=== PATIENT | male | born 1955 | race Caucasian/White ===

== ENCOUNTER 2017-04-22 09:41 | Inpatient (IN) | payer MEDICAID, OTHER ==
[~2017-04-22] VITALS: Ht 172.7 cm; Wt 90.9 kg
[2017-04-22] VITALS (15 sets, daily range): BP systolic 109–143; BP diastolic 72–88; PULSE 60–93; RESP 16–25; Ht 172.7 cm; Wt 90.9 kg
[2017-04-22] MEDS ORDERED: CARV6.2579 PO (11:00)
[2017-04-22] MEDS ORDERED: ATOR40TA68 PO (11:00)
[2017-04-22] MEDS ORDERED: ASPI325T4 PO (11:00)
[2017-04-22] MEDS ORDERED: FAMO20TA18 PO (11:00)
[2017-04-22] MEDS ORDERED: FENTAnyl 50 MCG/ML VIAL ONE (12:15)
[2017-04-22] MEDS ORDERED: LIDOCAINE 1% (MDV) 20 ML INJ ONE (12:15)
[2017-04-22] MEDS ORDERED: VERAPAMIL 5 MG INJ ONE (12:15)
[2017-04-22] MEDS ORDERED: MIDAZOLAM 1 MG/ML 2 ML INJ ONE (12:15)
[2017-04-22] MEDS ORDERED: HEPARIN 1000 UNITS/ML 10 ML INJ ONE (12:15)
[2017-04-22] MEDS ORDERED: IODIXANOL LOCM 100 ML BTL ONE (12:15)
--- NOTE | 2017-04-22 13:46 | OPR ---
Date/Time of Note Date/Time of Note DATE: 04/22/17 TIME: 13:40 Operative Report Preoperative Diagnosis NSTEMI Postoperative Diagnosis NSTEMI Surgeon see signature line Professor Of Genetics none Anesthesia Type: moderate sedation Estimated Blood Loss: minimal Transfusion none Specimen none Grafts/Implants none Complications none Procedure Description Procedure Date: 04/22/2017 Air Export Operations Agent/surgeon:Ba Whitaker MD. Procedures Performed: 1)Left heart catheterization with selective left and right coronary angiography. Pre-operative Diagnosis:NSTEMI Post-operative Diagnosis:NSTEMI Indications:62 yo M who presented with chest pain and was found to have an NSTEMI (trop 5). Transferred to [facility] for cardiac cath Description of Procedure: After informed consent, the patient was brought to the cardiac catheterization lab. The procedure site was prepped and draped in usual manner. The patient was premedicated with versed 1 mg and fentanyl 25 mcg. 1 mL lidocaine was injected into the right wrist. Next using the posterior wall technique, the 6/ 5 thai sheath was inserted into the right radial artery. Next using the JL3.5 and Mamadou posterior, selective angiography of the left and right coronary arteries were obtained. AV was not crossed. Next all equipment was removed and hemostasis was obtained by TR band Findings: Anatomy/Hemodynamics: Left main:normal LAD:ectatic with mid 40-50% long segment Diagonal: luminal irregularities Circumflex: ectatic with luminal irregularities Obtuse marginal: luminal irregularities RCA: mid-distal 100% with mild left-right and right-right collaterals LV angiography:not done AV not crossed Estimated blood loss<10 mL. Specimen: none Grafts/implants: none Complications: none Assessment: NSTEMI: Pt needs PCI of occluded RCA in setting of NSTEMI. Unfortunately a STEMI presented in the ED and since this pt was asymptomatic, it will be scheduled tomorrow. Pt is understanding of the situation. CAD Plan: -admit to tele -ASA -plavix load tonight (600mg ordered) -lipitor -metoprolol -PCI RCA tomorrow BA WHITAKER Apr 22, 2017 13:46
[2017-04-22] MEDS: ASPIRIN 81 MG TAB PO SCH (14:43)
--- NOTE | 2017-04-22 15:27 | HP ---
DATE OF ADMISSION: 04/22/2017 CHIEF COMPLAINT: Chest pain. HISTORY OF PRESENT ILLNESS: This is a 62-year-old male with a past medical history of tobacco use w ho presented to an outside hospital with chest pain. Patient states his pain started suddenly, is p ressure-like, 8/10 in severity with radiation to his back. It lasted 5 minutes. The patient was ad mitted to an outside hospital, was ruled in for a non-STEMI. The patient underwent medical manageme nt and was subsequently transferred to [facility] to undergo cardiac catheterizati on. Patient had initial cardiac catheterization which showed findings of disease in the RCA. An in tervention, however, was unable to be done as the procedure had to be terminated due to emergency. The patient was then transferred to recovery for continued care. Upon my evaluation of the patient at this time, the patient is stable. Denies any fevers, chills, n ausea or vomiting. PAST MEDICAL HISTORY: None per patient. PAST SURGICAL HISTORY: Status post hernia repair. ALLERGIES: NO KNOWN DRUG ALLERGIES. FAMILY HISTORY: Noncontributory. SOCIAL HISTORY: Positive tobacco abuse. MEDICATIONS: The patient's medications were reviewed and reconciled. REVIEW OF SYSTEMS: A 14-point review of systems was conducted. Pertinent positives stated in HPI, otherwise negative. PHYSICAL EXAMINATION: VITAL SIGNS: Blood pressure 139/80, respirations 20, pulse 66, temperature 98.0. HEENT: Head is normocephalic. NECK: Supple. HEART: Regular rate. LUNGS: Show diminished breath sounds at base. ABDOMEN: Soft, nontender to palpation. No rebound or guarding. EXTREMITIES: Negative for clubbing, cyanosis, no edema. DERMATOLOGIC: No rashes. MUSCULOSKELETAL: No joint effusions. NEUROLOGIC: No focal deficits. MEDICATIONS: Patient's medications have been reviewed. LABORATORY DATA: From an outside hospital was reviewed. ASSESSMENT AND PLAN: This is a 62-year-old male who presents with: 1. Non-ST elevation myocardial infarction. The patient is status post cardiac catheterization with noted disease of the RCA. Plan is for the patient to be monitored overnight. The patient will hav e the cardiac catheterization tomorrow again with expected intervention of the RCA. Would otherwise continue current medical management with Lipitor, aspirin and Plavix. 2. Hypertension. Continue metoprolol. 3. Obesity. Continue dietary modification. 4. Tobacco abuse. The patient will be given a nicotine patch. 5. Gastrointestinal and deep venous thrombosis prophylaxis. The patient will be placed on Pepcid a nd sequential leg squeezers. Please note I spent up to 25 minutes of face to face time with the patient. The patient is FULL COD E. Dictated By: HEATHER IVORY/HERNAN Conf#: [id number] DID#: [id number]
--- NOTE | 2017-04-22 16:01 | CONS ---
Date/Time of Note Date/Time of Note DATE: 04/22/17 TIME: 15:58 Assessment/Plan Assessment/Plan Chief Complaint/Hosp Course NSTEMI: Pt needs PCI of occluded RCA in setting of NSTEMI. Unfortunately a STEMI presented in the ED and since this pt was asymptomatic, it will be scheduled tomorrow. Pt is understanding of the situation. CAD -admit to tele -ASA -plavix load tonight (600mg ordered) -lipitor -metoprolol -PCI RCA tomorrow -NPO after midnight Problems: Consultation Date/Type/Reason Admit Date/Time Date of Consultation: Apr 22, 2017 Type of Consultation: Interventional Cardiology Reason for Consultation NSTEMI Hx of Present Illness 62 yo M who presented to [facility] with chest pain and was found to have an NSTEMI (trop 5). He was transferred to [facility] for cath which showed an occluded RCA with faint collaterals. He was to be intervened upon but due to an acute STEMI and the fact that the pt had been asymptomatic for 2-3 days, he was taken off the table and will be intervened upon tomorrow. He is understanding and agreeable. per HPI Past Medical History per hPI Social History Smoking Status: Current every day smoker Exam/Review of Systems Vital Signs Vitals Vital Signs Date Time Temp Pulse Resp B/P Pulse Ox O2 Delivery O2 Flow Rate FiO2 04/22/17 15:09 65 19 131/78 96 Room Air 04/22/17 13:58 98.0 Exam Constitutional: alert, oriented Psych: nl mood/affect, no complaints Head: atraumatic, normocephalic Neck: No jvd Respiratory: clear to auscultation, No crackles/rales Cardiovascular: regular rate and rhythm, No edema Gastrointestinal: non-tender, soft Neurological: nl mental status, nl speech Medications Medications Current Medications Aspirin (Aspirin) 81 mg DAILY PO Last administered on 04/22/17t 14:43; Admin Dose 81 MG; Start 04/22/17 at 14:00 Clopidogrel Bisulfate (plaVIX) 600 mg ONCE ONCE PO ; Start 04/22/17 at 20:00; Stop 04/22/17 at 20:01 Atorvastatin Calcium (Lipitor) 80 mg HS PO ; Start 04/22/17 at 21:00 Metoprolol Tartrate (Lopressor) 25 mg BID PO ; Start 04/22/17 at 21:00 Clopidogrel Bisulfate (plaVIX) 75 mg DAILY PO ; Start 04/23/17 at 09:00 Famotidine (Pepcid) 20 mg DAILY PO ; Start 04/23/17 at 09:00 SIMON ALVAREZ Apr 22, 2017 16:01
[2017-04-22 17:54] LABS: CALCIUM 9.4 mg/dl (8.4-10.2); CREATININE 0.94 mg/dl (0.61-1.24)
[2017-04-22] MEDS ORDERED: CLOPIDOGREL 75 MG TAB PO ONE (20:00)
[2017-04-22] MEDS: ATORVASTATIN 80 MG TAB PO SCH (20:27)
[2017-04-22] MEDS: METOPROLOL 25 MG TAB PO SCH (20:28)
[2017-04-23] VITALS (22 sets, daily range): BP systolic 98–125; BP diastolic 58–82; PULSE 58–81; RESP 12–19
[2017-04-23 07:13] LABS: BASOPHIL # 0.1 10^3/ul (0.0-0.1); BASOPHILS % 0.5 % (0.0-2.0); EOSINOPHILS # 0.3 10^3/ul (0.0-0.5); EOSINOPHILS % 3.1 % (0.0-7.0); HEMATOCRIT 44.6 % (42.0-52.0); HEMOGLOBIN 15.9 g/dl (14.0-18.0); LYMPHOCYTES # 3.3 10^3/ul (0.8-2.9); LYMPHOCYTES % 31.9 % (15.0-51.0); MEAN CORPUSCULAR HEMOGLOBIN 32.6 pg (29.0-33.0); MEAN CORPUSCULAR HGB CONC 35.7 g/dl (32.0-37.0); MEAN CORPUSCULAR VOLUME 91.4 fl (82.0-101.0); MEAN PLATELET VOLUME 9.4 fl (7.4-10.4); MONOCYTE # 1.2 10^3/ul (0.3-0.9); MONOCYTES % 11.3 % (0.0-11.0); NEUTROPHIL # 5.5 10^3/ul (1.6-7.5); NEUTROPHILS % 52.8 % (39.0-77.0); PLATELET COUNT 240 10^3/UL (140-415); RED BLOOD COUNT 4.88 10^6/ul (4.70-6.10); RED CELL DISTRIBUTION WIDTH 12.6 % (11.5-14.5); WHITE BLOOD COUNT 10.4 10^3/ul (4.8-10.8)
[2017-04-23 07:41] LABS: CALCIUM 9.2 mg/dl (8.4-10.2); CREATININE 1.02 mg/dl (0.61-1.24); MAGNESIUM 1.8 mg/dl (1.7-2.5); PHOSPHORUS 4.1 mg/dl (2.5-4.9); POTASSIUM 4.2 mmol/L (3.5-5.1)
[2017-04-23] MEDS: FAMOTIDINE 20 MG TAB PO SCH (08:20)
[2017-04-23] MEDS: ASPIRIN 81 MG TAB PO SCH (08:20)
[2017-04-23] MEDS: CLOPIDOGREL 75 MG TAB PO SCH (08:20)
[2017-04-23] MEDS: METOPROLOL 25 MG TAB PO SCH ×2 (08:21→20:53)
--- NOTE | 2017-04-23 11:37 | PN ---
DATE: 04/23/2017 SUBJECTIVE: The patient is stable. No events overnight. OBJECTIVE: VITAL SIGNS: Blood pressure is 98/64, pulse 68, respirations 19, temperature 97.9. HEENT: Head is normocephalic. NECK: Supple. HEART: Regular rate. LUNGS: Show diminished breath sounds at base. ABDOMEN: Soft, nontender to palpation. No rebound or guarding. EXTREMITIES: Negative for clubbing, cyanosis, edema. DERMATOLOGIC: No rashes. MUSCULOSKELETAL: No joint effusions. NEUROLOGIC: No change in exam. MEDICATIONS: The patient's medications have been reviewed. LABORATORY DATA: Shows a BMP within normal limits. CBC within normal limits. ASSESSMENT AND PLAN: 1. Non-ST elevation myocardial infarction. The patient is pending cardiac catheterization today wi th planned intervention of the right coronary artery. Continue current medical management. 2. Hypertension. Continue metoprolol. 3. Obesity. Continue dietary modification. 4. Tobacco abuse. Continue to monitor and give nicotine patch as needed. 5. Gastrointestinal and deep venous thrombosis prophylaxis. Continue Pepcid and sequential leg squ eezers. Dictated By: HEATHER IVORY/HERNAN Conf#: [id number] DID#: [id number]
[2017-04-23] MEDS ORDERED: LIDOCAINE 1% (MDV) 20 ML INJ ONE ×2 (12:27→12:29)
[2017-04-23] MEDS ORDERED: HEPARIN 1000 UNITS/ML 10 ML INJ ONE (12:27)
[2017-04-23] MEDS ORDERED: MIDAZOLAM 1 MG/ML 2 ML INJ ONE (12:28)
[2017-04-23] MEDS ORDERED: FENTAnyl 50 MCG/ML VIAL ONE (12:28)
[2017-04-23] MEDS ORDERED: BIVALIRUDIN 250MG /NS 50 ML 50 ML IVPB ONE (12:29)
[2017-04-23] MEDS ORDERED: IODIXANOL LOCM 100 ML BTL ONE (12:29)
[2017-04-23] MEDS ORDERED: IOHEXOL 350MG/ML 50 ML BTL ONE (12:29)
[2017-04-23] MEDS ORDERED: NITROGLYCERIN (IC) 100 MCG/ML INJ ONE (12:29)
--- NOTE | 2017-04-23 13:54 | CONS ---
Date/Time of Note Date/Time of Note DATE: 04/23/17 TIME: 13:53 Assessment/Plan Assessment/Plan Chief Complaint/Hosp Course NSTEMI: s/p PCI of occluded RCA CAD -ASA 81mg -plavix 75mg -lipitor -metoprolol -likely d/c in am if no issues Problems: Consultation Date/Type/Reason Admit Date/Time Apr 22, 2017 at 16:07 Initial Consult Date 04/22/17 Type of Consultation: Interventional Cardiology 24 HR Interval Summary Free Text/Dictation s/p PCI of occluded RCA. No issues immediately post. Exam/Review of Systems Vital Signs Vitals Vital Signs Date Time Temp Pulse Resp B/P Pulse Ox O2 Delivery O2 Flow Rate FiO2 04/23/17 12:50 76 04/23/17 12:04 98.1 19 121/71 94 04/22/17 15:53 Room Air Intake and Output 04/22/17 04/22/17 04/23/17 15:00 23:00 07:00 Intake Total 200 ml 800 ml 200 ml Balance 200 ml 800 ml 200 ml Exam Constitutional: alert, oriented Psych: nl mood/affect, no complaints Head: atraumatic, normocephalic Neck: No jvd Respiratory: clear to auscultation, No crackles/rales Cardiovascular: regular rate and rhythm, No edema Gastrointestinal: non-tender, soft Neurological: nl mental status, nl speech Results Result Diagram: 04/23/17 0651 04/23/17 0651 Results 24 hrs Laboratory Tests Test 04/22/17 17:03 04/23/17 06:51 Sodium Level 139 137 Potassium Level 4.0 4.2 Chloride Level 104 104 Carbon Dioxide Level 25 26 Anion Gap 14 11 Blood Urea Nitrogen 17 16 Creatinine 0.94 1.02 Glucose Level 162 126 Calcium Level 9.4 9.2 White Blood Count 10.4 Red Blood Count 4.88 Hemoglobin 15.9 Hematocrit 44.6 Mean Corpuscular Volume 91.4 Mean Corpuscular Hemoglobin 32.6 Mean Corpuscular Hemoglobin Concent 35.7 Red Cell Distribution Width 12.6 Platelet Count 240 Mean Platelet Volume 9.4 Neutrophils % 52.8 Lymphocytes % 31.9 Monocytes % 11.3 H Eosinophils % 3.1 Basophils % 0.5 Nucleated Red Blood Cells % 0.0 Neutrophils # 5.5 Lymphocytes # 3.3 H Monocytes # 1.2 H Eosinophils # 0.3 Basophils # 0.1 Nucleated Red Blood Cells # 0.0 Phosphorus Level 4.1 Magnesium Level 1.8 Medications Medications Current Medications Aspirin (Aspirin) 81 mg DAILY PO Last administered on 04/23/17 08:20; Admin Dose 81 MG; Start 04/22/17 at 14:00 Atorvastatin Calcium (Lipitor) 80 mg HS PO Last administered on 04/22/17 20:27 ; Admin Dose 80 MG; Start 04/22/17 at 21:00 Metoprolol Tartrate (Lopressor) 25 mg BID PO Last administered on 04/22/17 20: 28; Admin Dose 25 MG; Start 04/22/17 at 21:00 Clopidogrel Bisulfate (plaVIX) 75 mg DAILY PO Last administered on 04/23/17 08 :20; Admin Dose 75 MG; Start 04/23/17 at 09:00 Famotidine (Pepcid) 20 mg DAILY PO Last administered on 04/23/17 08:20; Admin Dose 20 MG; Start 04/23/17 at 09:00 SIMON ALVAREZ Apr 23, 2017 13:54
[2017-04-23] MEDS ORDERED: SOD CHLORIDE 0.9% 1,000 ML IV SCH (14:00)
[2017-04-23] MEDS ORDERED: ONDANSETRON 4 MG INJ IV PRN (14:00)
[2017-04-23] MEDS ORDERED: morphine 2 MG INJ IV PRN (14:00)
--- NOTE | 2017-04-23 14:07 | OPR ---
Date/Time of Note Date/Time of Note DATE: 04/23/17 TIME: 13:56 Operative Report Preoperative Diagnosis NSTEMI Postoperative Diagnosis NSTEMI s/p PCI of RCA/PDA Surgeon see signature line Qc Tech none Anesthesia Type: moderate sedation Estimated Blood Loss: minimal Transfusion none Specimen none Grafts/Implants none Complications none Procedure Description Procedure Date:04/23/2017 Devulcanizer Head/surgeon: Ba Whitaker MD. Procedures Performed: 1)Balloon angioplasty and stenting of the mid to distal RCA extending into the mid PDA with Synergy 2.5 x 28, Synergy 3.0 x 20, and Synergy 3.0 x 8 overlapping drug eluting stents 2)Right femoral angiography with Perclose closure device Pre-operative Diagnosis:NSTEMI Post-operative Diagnosis:NSTEMI Indications:62 yo M with chest pain and NSTEMI (trop 5). Planned PCI of occluded RCA Description of Procedure: After informed consent, the patient was brought to the cardiac catheterization lab. The procedure site was prepped and draped in usual manner. The patient was premedicated with versed 1 mg and fentanyl 25 mcg. 5 mL lidocaine was injected into the right groin. Next using the Seldinger technique, the 6 bulgarian sheath was inserted into the right femoral artery. A 6 bulgarian JR 4 guide was advanced and engaged into the right coronary artery. After appropriate anticoagulation was given (ASA/plavix already loaded and given ), the PT 2 light support angioplasty wire was advanced past the lesion. Next the 2.0 X 12 balloon and 2.5 x 12 balloon was used to dilate the lesion. Subsequently, the Synergy 2.5 x 28 stent was advanced to the lesion and deployed at 12 ana luisa.Subsequently, the Synergy 3.0 x 20 stent was advanced to the lesion and deployed at 12 ana luisa (overlapping). Subsequently, the Synergy 3.0 x 8 stent was advanced to the lesion and deployed at 12 ana luisa. Final angiography revealed TAMMI 3 flow, no edge dissection, and appropriate stent expansion. Next all equipment was removed and hemostasis was achieved by Perclose closure device. Findings: Anatomy/Hemodynamics: RCA: mid-distal 100% with faint right-right collaterals. PDA: After restoring flow, noted to be diffusely disease from prox to mid segment PLV: small, eventually showed mild disease Contrast used:110 mL Fluoroscopy time: 8.9 min Medications used: Versed 1 Fentanyl 25 Angiomax Equipment used: 6 bulgarian JR 4 guide PT 2 light support angioplasty wire 2 x 12 and 2.5 x 12 balloon ynergy 2.5 x 28, Synergy 3.0 x 20, and Synergy 3.0 x 8 overlapping drug eluting stents Estimated blood loss<10 mL. Specimen: none Grafts/implants: none Complications: none Assessment: NSTEMI s/p successful PCI of RCA Plan: -ASA 81mg lifelong plavix 75mg at least one year BA WHITAKER Apr 23, 2017 14:06
[2017-04-23] MEDS: ATORVASTATIN 80 MG TAB PO SCH (20:52)
[2017-04-24] VITALS: BP 91/57; PULSE 87; RESP 20
[2017-04-24 04:00] VITALS: BP 103/63; PULSE 67; RESP 19
[2017-04-24 08:00] VITALS: BP 98/54; PULSE 69; RESP 19
[2017-04-24] MEDS: ASPIRIN 81 MG TAB PO SCH (09:37)
[2017-04-24] MEDS: FAMOTIDINE 20 MG TAB PO SCH (09:38)
[2017-04-24] MEDS: CLOPIDOGREL 75 MG TAB PO SCH (09:38)
[2017-04-24] MEDS: METOPROLOL 25 MG TAB PO SCH (09:44)
--- NOTE | 2017-04-24 10:11 | CONS ---
Date/Time of Note Date/Time of Note DATE: 04/24/17 TIME: 10:09 Consult Date/Type/Reason Admit Date/Time Apr 22, 2017 at 16:07 Initial Consult Date 04/22/17 Type of Consultation: Interventional Cardiology Subjective post procedure. no cp/sob no bleeding good uop. HEENT: Head is normocephalic. NECK: Supple. HEART: Regular rate. LUNGS: Show diminished breath sounds at base. ABDOMEN: Soft, nontender to palpation. No rebound or guarding. EXTREMITIES: Negative for clubbing, cyanosis, no edema. DERMATOLOGIC: No rashes. MUSCULOSKELETAL: No joint effusions. NEUROLOGIC: No focal deficits. Objective Vital Signs Date Time Temp Pulse Resp B/P Pulse Ox O2 Delivery O2 Flow Rate FiO2 04/24/17 08:00 98.1 69 19 98/54 96 04/23/17 15:05 Room Air 04/23/17 14:15 2.0 Intake and Output 04/23/17 04/23/17 04/24/17 15:00 23:00 07:00 Intake Total 120 ml 400 ml Balance 120 ml 400 ml Results/Medications Result Diagram: 04/23/17 0651 04/23/17 0651 Medications Current Medications Aspirin (Aspirin) 81 mg DAILY PO Last administered on 04/24/17 09:37; Admin Dose 81 MG; Start 04/22/17 at 14:00 Atorvastatin Calcium (Lipitor) 80 mg HS PO Last administered on 04/23/17 20:52 ; Admin Dose 80 MG; Start 04/22/17 at 21:00 Metoprolol Tartrate (Lopressor) 25 mg BID PO Last administered on 04/24/17 09: 44; Admin Dose 25 MG; Start 04/22/17 at 21:00 Clopidogrel Bisulfate (plaVIX) 75 mg DAILY PO Last administered on 04/24/17 09 :38; Admin Dose 75 MG; Start 04/23/17 at 09:00 Famotidine (Pepcid) 20 mg DAILY PO Last administered on 04/24/17 09:38; Admin Dose 20 MG; Start 04/23/17 at 09:00 Morphine Sulfate (morphine) 2 mg Q2H PRN IV FOR NON CARDIAC PAIN (4-10); Start 04/23/17 at 14:00 Ondansetron HCl (Zofran Inj) 4 mg Q4H PRN IV NAUSEA AND/OR VOMITING; Start 04/23/17 at 14:00 Assessment/Plan Chief Complaint/Hosp Course 1. Non-ST elevation myocardial infarction. await cards to see, ? dc home, s/p angio 2. Hypertension. Continue metoprolol. 3. Obesity. Continue dietary modification. 4. Tobacco abuse. Continue to monitor and give nicotine patch as needed. 5. Gastrointestinal and deep venous thrombosis prophylaxis. Continue Pepcid and sequential leg squeezers. Problems: ENRIQUE DOZIER MD Apr 24, 2017 10:11
[2017-04-24] MEDS ORDERED: ASPI81TA3 PO (10:14)
[2017-04-24] MEDS ORDERED: CLOP75TA28 PO (10:14)
[2017-04-24] MEDS ORDERED: ATOR80TA75 PO (10:14)
--- NOTE | 2017-04-24 10:16 | DS ---
Date/Time of Note Date/Time of Note DATE: 04/24/17 TIME: 10:15 Discharge Summary Admission/Discharge Info Admit Date/Time Apr 22, 2017 at 16:07 Discharge Date/Time Patient Condition: Good Hospital Course 1. Non-ST elevation myocardial infarction. await cards to see, ? dc home, s/p angio 2. Hypertension. Continue metoprolol. 3. Obesity. Continue dietary modification. 4. Tobacco abuse. Continue to monitor and give nicotine patch as needed. 5. Gastrointestinal and deep venous thrombosis prophylaxis. Continue Pepcid and sequential leg squeezers. Home Meds Active Scripts Aspirin (Aspirin) 81 Mg Chew, 81 MG PO DAILY for 60 Days, TAB Prov:ENRIQUE DOZIER MD 04/24/17 Clopidogrel Bisulfate (Clopidogrel) 75 Mg Tablet, 75 MG PO DAILY for 60 Days, TAB Prov:ENRIQUE DOZIER MD 04/24/17 Atorvastatin* (Atorvastatin*) 80 Mg Tablet, 80 MG PO HS for 60 Days, TAB Prov:ENRIQUE DOZIER MD 04/24/17 Reported Medications Atorvastatin* (Atorvastatin*) 40 Mg Tablet, 40 MG PO QHS, #30 TAB 04/22/17 Carvedilol* (Carvedilol*) 6.25 Mg Tablet, 6.25 MG PO BID, #60 TAB 04/22/17 Famotidine* (Famotidine*) 20 Mg Tablet, 20 MG PO DAILY, #30 TAB 04/22/17 Discontinued Reported Medications Aspirin* (Aspirin*) 325 Mg Tablet, 325 MG PO DAILY, TAB 04/22/17 Primary Care Provider Ba Whitaker Time spent on discharge: < 30 minutes ENRIQUE DOZIER MD Apr 24, 2017 10:16
--- NOTE | 2017-04-24 11:09 | CONS ---
Date/Time of Note Date/Time of Note DATE: 04/24/17 TIME: 11:04 Consult Date/Type/Reason Admit Date/Time Apr 22, 2017 at 16:07 Initial Consult Date 04/22/17 Type of Consultation: Interventional Cardiology Subjective No issues overnight. No CP/SOB/Abd pain. Ambulating without difficulty Objective Vital Signs Date Time Temp Pulse Resp B/P Pulse Ox O2 Delivery O2 Flow Rate FiO2 04/24/17 08:00 98.1 69 19 98/54 96 04/23/17 15:05 Room Air 04/23/17 14:15 2.0 Intake and Output 04/23/17 04/23/17 04/24/17 15:00 23:00 07:00 Intake Total 120 ml 400 ml Balance 120 ml 400 ml Exam Gen: NAD, alert Neck: No JVD or carotid bruits Lungs: CTAB, no crackles or wheezes Heart: RRR, no m/r/g; nml S1S2 Abdomen: + BS, s/nt/nd Ext: No c/c/e, right groin no hematoma or bruit, non-tender, R distal pulses intact Results/Medications Result Diagram: 04/23/1765004/23/17 0651 Medications Current Medications Aspirin (Aspirin) 81 mg DAILY PO Last administered on 04/24/17 09:37; Admin Dose 81 MG; Start 04/22/17 at 14:00 Atorvastatin Calcium (Lipitor) 80 mg HS PO Last administered on 04/23/17 20:52 ; Admin Dose 80 MG; Start 04/22/17 at 21:00 Metoprolol Tartrate (Lopressor) 25 mg BID PO Last administered on 04/24/17 09: 44; Admin Dose 25 MG; Start 04/22/17 at 21:00 Clopidogrel Bisulfate (plaVIX) 75 mg DAILY PO Last administered on 04/24/17 09 :38; Admin Dose 75 MG; Start 04/23/17 at 09:00 Famotidine (Pepcid) 20 mg DAILY PO Last administered on 04/24/17 09:38; Admin Dose 20 MG; Start 04/23/17 at 09:00 Morphine Sulfate (morphine) 2 mg Q2H PRN IV FOR NON CARDIAC PAIN (4-10); Start 04/23/17 at 14:00 Ondansetron HCl (Zofran Inj) 4 mg Q4H PRN IV NAUSEA AND/OR VOMITING; Start 04/23/17 at 14:00 Assessment/Plan Additional Assessment/Plan Assessment: 1. NSTEMI, s/p PCI RCA with KATE X 3 04/23/17 Plan: 1. ASA 81 mg daily and Plavix 75 mg daily for at least 12 months 2. Lopressor 25 mg bid 3. Lipitor 80 mg qhs (high-intensity statin) 4. Ok with d/c today, advised patient to seek prompt OP follow-up ADE GRAMAJO MD Apr 24, 2017 11:09
[2017-04-24 11:43] VITALS: BP 116/67; RESP 19
[2017-04-24 12:00] VITALS: PULSE 69
== END 2017-04-24 15:15 | disposition home or self-care (01) | DRG 247 ==
LOC: CCL 09:41 → MS4 16:07 → CCL 16:07
PROVIDERS: ADMIT Internal Medicine Interventional Cardiology; ATTEND Internal Medicine Interventional Cardiology
PROC: B2111ZZ Fluoroscopy of Multiple Coronary Arteries using Low Osmolar Contrast (ICD-10-PCS; 2017-04-22)
PROC: 4A023N7 Measurement of Cardiac Sampling and Pressure, Left Heart, Percutaneous Approach (ICD-10-PCS; principal; 2017-04-22 12:00)
PROC: 027136Z Dilation of Coronary Artery, Two Arteries with Three Drug-eluting Intraluminal Devices, Percutaneous Approach (ICD-10-PCS; 2017-04-23)
DX: I21.4 Non-ST elevation (NSTEMI) myocardial infarction (principal); I10 Essential (primary) hypertension; E66.9 Obesity, unspecified; Z68.30 Body mass index [BMI] 30.0-30.9, adult; F17.200 Nicotine dependence, unspecified, uncomplicated
CPT/HCPCS: 80048; 83735; 84100; 85025; 93454; C1887; J0583; J1644; J2250; J3010; J7030; Q9967